=== PATIENT | male | born 1960 | race African-American/Black ===

== ENCOUNTER 2017-05-12 19:05 | Emergency (ER) | payer BC ==
--- NOTE | 2017-05-12 19:42 | PDOC ---
Rapid Medical Evaluation Time Seen by Provider: 05/12/17 19:39 Medical Evaluation: Allergies Allergy/AdvReac Type Severity Reaction Status Date / Time No Known Drug Allergies Allergy Unverified 11/12/11 15:03 05/12/17 19:44 The patient presents with a chief complaint of: back pain I have performed a brief in-person evaluation of this patient. Pertinent physical exam findings: vss, uncomfortable. right si pain, unrelieved by alleve I have ordered the following: xray, ua, pain meds The patient will proceed to the ED for further evaluation. 05/12/17 19:45
[2017-05-12 19:47] VITALS: BP 173/98; PULSE 85; TEMP 98.8; BMI 27.4
[2017-05-12 20:53] LABS: URINE APPEARANCE SLCLOUDY; URINE BILIRUBIN NEGATIVE (<2.0 mg/dL); URINE BLOOD NEGATIVE (NEGATIVE); URINE COLOR DKYELLOW; URINE GLUCOSE (UA) NEGATIVE (NEGATIVE); URINE KETONE NEGATIVE (NEGATIVE); URINE LEUK ESTERASE NEGATIVE (NEGATIVE); URINE NITRITE NEGATIVE (NEGATIVE)
[2017-05-12 21:07] LABS: URINE PROTEIN 2+ (NEGATIVE)
[2017-05-12 21:08] LABS: EPI CELLS FEW /HPF (FEW); URINE BACTERIA RARE /hpf (NONE SEEN); URINE MUCUS MANY
[2017-05-12] MEDS ORDERED: diazePAM 2 MG TABLET PO ONE (21:47)
[2017-05-12] MEDS ORDERED: KETOROLAC TROMETHAMINE 30 MG/1 ML VIAL IM ONE (21:47)
[2017-05-12] MEDS ORDERED: KETOROLAC TROMETHAMINE 30 MG/1 ML VIAL ONE (21:50)
[2017-05-12] MEDS ORDERED: diazePAM 2 MG TABLET ONE (21:50)
--- NOTE | 2017-05-12 21:53 | PDOC ---
History of Present Illness - General Chief Complaint: Back Pain Stated Complaint: LOWER BACK PAIN Time Seen by Provider: 05/12/17 19:39 History Source: Patient Exam Limitations: No Limitations - History of Present Illness Initial Comments: 05/12/17 21:48 CHIEF COMPLAINT: Lower back pain HISTORY OF PRESENT ILLNESS: This 56 rolled no past medical history of hypertension presents to emergency department with right lower back pain for 2 days. Patient states yesterday he was sitting in his mother's bedside on a low- dose stool for an extended. Time. We tried to stand up from the stool he felt a sharp pain in his right lower back. He denies any trauma, twisting, heavy lifting prior to this. Patient states he is tried taking [id number] medications such as Aleve and Tylenol with minimal relief of symptoms. He denies any numbness or tingling to his lower extremities, saddle anesthesia, urinary or bowel incontinence. REVIEW OF SYSTEMS: GENERAL: Afebrile, denies any weakness RESPIRATORY: No cough, wheezing, or hemoptysis. CARDIAC: No chest pain or shortness of breath MUSCULOSKELETAL: Pain to generalized lower back. Point tenderness to right IS joint. SKIN : No erythema, no bruising, no deformity. GI/: Denies any abdominal pain, no urinary difficulty, incontinence or urinary retention. RECTAL: Denies any difficulty this A.m. NEUROLOGICAL: Denies any numbness or tingling. No neurosensory deficits. PHYSICAL EXAM: GENERAL: The patient is awake, alert, and fully oriented, in no acute distress. RESPIRATORY: Lungs clear bilaterally, no rhonchi wheezes or crackles CARDIAC: S1-S2 audible, no murmur rub or gallop MUSCULOSKELETAL: Pain to right IS joint, nonradiating, no tingling or sensory deficit. Less than 2 second cap refill, +2 dorsalis pedal pulses. GI/: Abdomen soft, nontender, nondistended. No rebound tenderness. No masses palpable. MUSCULOSKELETAL: point tenderness to right IS. Normal reflexive and no deficits to sensation or strength. RECTAL: Deferred patient with no neurological findings SKIN: Warm, Dry, normal turgor, no erythema, no edema no bruising. Past History - Past Medical History Allergies/Adverse Reactions: Allergies Allergy/AdvReac Type Severity Reaction Status Date / Time No Known Drug Allergies Allergy Verified 05/12/17 20:53 Home Medications: Ambulatory Orders No Home Medications 0 dose .ROUTE UTDICT 10/03/11 Methocarbamol [Robaxin -] 1,500 mg PO Q8H #30 tablet 05/12/17 Anemia: No Asthma: No Cancer: No Cardiac Disorders: No CVA: No COPD: No CHF: No Dementia: No Diabetes: No GI Disorders: Yes (ABD. PAIN) Disorders: No HTN: No Hypercholesterolemia: No Liver Disease: No Seizures: No Thyroid Disease: No - Surgical History Abdominal Surgery: No Appendectomy: No Cardiac Surgery: No Cholecystectomy: No Lung Surgery: No Neurologic Surgery: No Orthopedic Surgery: No - Suicide/Smoking/Psychosocial Hx Smoking History: Current every day smoker Have you smoked in the past 12 months: Yes Number of Cigarettes Smoked Daily: 10 Information on smoking cessation initiated: Yes 'Breaking Loose' booklet given: 10/03/11 Hx Alcohol Use: Yes (DAILY LAST ONE IS 10/02/11) Drug/Substance Use Hx: No Substance Use Type: None *Physical Exam - Vital Signs Last Vital Signs Temp Pulse Resp BP Pulse Ox 98.8 F 85 16 173/98 99 05/12/17 19:42 05/12/17 19:42 05/12/17 19:42 05/12/17 19:42 05/12/17 19:42 ED Treatment Course - ADDITIONAL ORDERS Additional order review: Laboratory Results 05/12/17 20:48 Urine Color Dkyellow Urine Appearance Slcloudy Urine pH 6.0 Ur Specific [place] 1.031 Urine Protein 2+ H Urine Glucose (UA) Negative Urine Ketones Negative Urine Blood Negative Urine Nitrite Negative Urine Bilirubin Negative Urine Urobilinogen 2.0 Ur Leukocyte Esterase Negative Urine WBC (Auto) 7 Urine RBC (Auto) 3 Ur Epithelial Cells Few Urine Bacteria Rare Urine Mucus Many Medical Decision Making - Medical Decision Making 05/12/17 21:53 A/P: 56-year-old male with history of hypertension and lower back pain Point tenderness to the right IS Palpable muscle spasm in the right paraspinous region. No bony deformity or tenderness appreciated on exam No CVA tenderness elicited. If the perform straight leg raises without difficulty. Pain worsens with passive flexion of the hip Full sensation present to bilateral lower extremities to the medial and lateral aspects urinalysis done in rapid medical evaluation shows 2+ protein X-rays of lumbosacral spine as read by me: No fractures, dislocations or subluxations present Muscle spasm of the lower back Toradol 30 mg IM now Valium 2 mg orally Discharge home with prescription for Robaxin *DC/Admit/Observation/Transfer Diagnosis at time of Disposition: Back pain Qualifiers: Back pain location: low back pain Chronicity: acute Back pain laterality: right Sciatica presence: without sciatica Qualified Code(s): M54.5 - Low back pain - Discharge Dispostion Disposition: HOME Condition at time of disposition: Stable Admit: No - Prescriptions Prescriptions: Methocarbamol [Robaxin -] 1,500 mg PO Q8H #30 tablet - Referrals - Patient Instructions Printed Discharge Instructions: DI for Low Back Pain Additional Instructions: Take Tylenol or Motrin as needed for pain. Follow manufacturers instructions for appropriate dosage. Take Robaxin 1500 mg every 8 hours as needed for pain Try not to walk or bear weight as much as possible for the next 3 days. Warm moist heat applied to your back may help alleviate pain. Return to emergency department for numbness or tingling to the feet, worsening pain, or any other concerns. Thank you very much for choosing us to provide your emergent healthcare needs. - Post Discharge Activity
== END 2017-05-12 21:58 | disposition home or self-care (01) ==
LOC: JERFT 19:05
PROC: 3E0233Z Introduction of Anti-inflammatory into Muscle, Percutaneous Approach (ICD-10-PCS; principal; 2017-05-12)
DX: M54.5 Low back pain (principal); I10 Essential (primary) hypertension; F17.210 Nicotine dependence, cigarettes, uncomplicated
CPT/HCPCS: 72100-TC-FY; 81003; 81015; 99281-25

== ENCOUNTER 2022-07-10 07:17 | Day surgery (SDC) | payer BC ==
[2022-07-05 13:40] VITALS: BMI 24.0
[2022-07-10] MEDS ORDERED: oxyCODONE HCL 5 MG TABLET PO PRN (08:57)
[2022-07-10] MEDS ORDERED: ONDANSETRON 4 MG/2 ML VIAL IVPUSH PRN (08:57)
[2022-07-10] MEDS ORDERED: LACTATED RINGERS SOLUTION 1,000 ML IV SCH (09:00)
[2022-07-10] MEDS ORDERED: PROPOFOL 20 ML ONE (09:16)
[2022-07-10] MEDS ORDERED: MIDAZOLAM HCL 2 MG/2 ML SINGLE DOSE VIAL ONE (09:16)
[2022-07-10] MEDS ORDERED: BUPIVACAINE HCL/PF 2.5 MG/ML - 30 ML VIAL IJ ONE (09:30)
[2022-07-10 10:25] VITALS: RESP 16; TEMP 97.6
[2022-07-11 12:10] VITALS: BP 143/93; PULSE 81
== END 2022-07-10 10:45 | disposition home or self-care (01) ==
LOC: FASU 07:17
PROVIDERS: ATTEND Orthopaedic Surgery Hand Surgery
PROC: 0JBJ0ZX Excision of Right Hand Subcutaneous Tissue and Fascia, Open Approach, Diagnostic (ICD-10-PCS; principal; 2022-07-10 09:41)
DX: L72.0 Epidermal cyst (principal)
CPT/HCPCS: 88305-TC